=== PATIENT | female | born 1995 ===

== ENCOUNTER 2018-11-20 07:56 | Emergency (ER) | payer OTHER ==
--- NOTE | 2018-11-20 08:04 | UC ---
Respiratory Complaint HPI - HPI Summary HPI Summary: 23 yo female presents with dry cough for the last week. She tells me that about a week ago she began to have a dry cough, but over the last 3-4 days has felt feverish and has developed some sinus congestion. Two days ago she went to [address] [place] [address] and was tested for the flu, which was negative per pt. She said they did not prescribe her any medications. She also mentions that she is under a lot of stress recently - she gave 10 days ago and her has had many complications - is currently admitted at [facility]. She has not been taking anything OTC. Denies sore throat, SOB, chest pain, abdominal pain, n/v. - History of Current Complaint Stated Complaint: URI Time Seen by Provider: 11/20/18 08:02 Hx Obtained From: Patient Onset/Duration: Gradual Onset Timing: Constant Severity Initially: Mild Severity Currently: Moderate Pain Intensity: 7 Pain Scale Used: 0-10 Numeric Character: Cough: Nonproductive - Allergies/Home Medications Allergies/Adverse Reactions: Allergies Allergy/AdvReac Type Severity Reaction Status Date / Time No Known Allergies Allergy Verified 11/20/18 08:07 PMH/Surg Hx/FS Hx/Imm Hx - Additional Past Medical History Additional PMH: None - Family History Known Family History: Positive: None - Social History Occupation: Employed Full-time Lives: With Family Alcohol Use: None Substance Use Type: None Smoking Status (MU): Never Smoked Tobacco Review of Systems All Other Systems Reviewed And Are Negative: Yes Constitutional: Positive: Negative Skin: Positive: Negative Eyes: Positive: Negative ENT: Positive: Sinus Congestion Respiratory: Positive: Cough Cardiovascular: Positive: Negative Gastrointestinal: Positive: Negative Neurovascular: Positive: Negative Neurological: Positive: Negative Psychological: Positive: Negative Physical Exam - Summary Physical Exam Summary: GENERAL: NAD. WDWN. No pain distress. SKIN: No rashes, sores, lesions, or open wounds. HEENT: Head: AT/NC Eyes: EOM intact. Conjunctiva clear without inflammation or discharge. Ears: Hearing grossly normal. TMs intact, no bulging, erythema, or edema. Nose: Nasal mucosa pink and moist. NTTP maxillary and frontal sinus. Throat: Posterior oropharynx without exudates, erythema, or tonsillar enlargement. Uvula midline. NECK: Supple. Nontender. No lymphadenopathy. CHEST: CTAB. No r/r/w. No accessory muscle use. Breathing comfortably and in no distress. CV: RRR. Without m/r/g. Pulses intact. Cap refill <2seconds NEURO: Alert. PSYCH: Age appropriate behavior. Triage Information Reviewed: Yes Vital Signs: Vital Signs: Temp Pulse Resp BP Pulse Ox 99.8 F 83 18 128/86 96 11/20/18 08:03 11/20/18 08:03 11/20/18 08:03 11/20/18 08:03 11/20/18 08:03 Vital Signs Reviewed: Yes Respiratory Course/Dx - Course Course Of Treatment: Suspect bronchitis. She is not currently as her is in the hospital - rx for zpak and f/u if symptoms not improving. - Differential Dx/Diagnosis Provider Diagnosis: Bronchitis Discharge - Sign-Out/Discharge Documenting (check all that apply): Patient Departure All imaging exams completed and their final reports reviewed: No Studies - Discharge Plan Condition: Stable Disposition: HOME Prescriptions: Azithromycin TAB* [Zithromax TAB (Z-JOYA) 250 mg #6 tabs] 2 tab PO .TODAY, THEN 1 DAILY #1 joya Patient Education Materials: Acute Bronchitis (ED) Referrals: No Primary Care Phys,NOPCP [Primary Care Provider] - Additional Instructions: If you develop a fever, shortness of breath, chest pain, new or worsening symptoms - please call your PCP or go to the ED. - Billing Disposition and Condition Condition: STABLE Disposition: Home - Attestation Statements Provider Attestation: I was available for consult. This patient was seen by the MILLA. The patient was not presented to , seen by or examined by de -Madeline Ferreira MD
== END 2018-11-20 08:20 | disposition home or self-care (01) ==
LOC: UCEAST 07:56
DX: J40 Bronchitis, not specified as acute or chronic (principal)
CPT/HCPCS: 99202; G0463